=== PATIENT | female | born 1995 | race Caucasian/White ===

== ENCOUNTER 2021-09-15 10:23 | Emergency (ER) | payer OTHER, SELFPAY ==
[2021-09-15 10:30] VITALS: BP 114/70; PULSE 70; RESP 18; TEMP 36.4; O2SAT 100; BMI 22.6
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
== END 2021-09-15 11:04 | disposition home or self-care (01) ==
PROVIDERS: Emergency Provider Physician Assistant
DX: R51.9 Headache, unspecified (principal)
CPT/HCPCS: 99281

== ENCOUNTER 2021-11-26 09:27 | Emergency (ER) | payer OTHER, SELFPAY ==
[2021-11-26 09:37] VITALS: BP 124/80; PULSE 92; RESP 18; TEMP 36.8; O2SAT 100; BMI 21.9
--- NOTE | 2021-11-26 10:24 | ED_ITS ---
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 Her tetanus is up-to-date. She has never received rabies vaccination series prior. This is a workers comp injury. complaint: animal bite Onset (ago): hour(s) Animal: cat Description of animal: wild animal and immunizations unknown Mechanism: bite and scratch Location - Extremities: Right: forearm Associated symptoms: Reports no associated symptoms; Deny chills, fever(s) or headache(s) Related Data: Patient tetanus UTD: Yes Review of Systems Const: Denies: fever(s), chills, body aches, fatigue or malaise Card: Denies: chest pain Resp: Denies: dyspnea GI: Denies: abdominal pain, nausea, vomiting or diarrhea Musc: Reports: extremity pain; Denies: neck pain, back pain, extremity swelling, joint pain or joint swelling Skin/Breast: Reports: other (multiple cat scratch/bites) Neuro: Denies: headache(s), numbness in extremities, weakness in extremities or sensory changes Physical Exam Const: COMMON NORMALS: no acute distress, average body habitus, patient oriented x3, no limitations, healthy appearing, alert and well nourished Extremity: GENERAL: Yes normal exam except as noted RIGHT UPPER EXTREMITY: Yes lower arm OTHER: pt has multiple cat scratches and bite/puncture carr to dorsal R forearm; no redness, swelling, discharge, streaking Neuro: COMMON NORMALS: patient oriented x3, moves all extremities, no focal motor deficits and no sensory deficits noted SENSORIUM/ORIENTATION: Yes alert Course Vital Signs: Vital signs: Vital Signs Temperature 98.2 F 11/26/21 09:37 Pulse Rate 92 11/26/21 09:37 Respiratory Rate 18 11/26/21 09:37 Blood Pressure 124/80 11/26/21 09:37 Pulse Oximetry 100 11/26/21 09:37 MDM - Animal Bite Medical Decision Making Patient will be started on rabies series. She will be placed on Augmentin. Her tetanus is up-to-date. Patient was given schedule and instructions on when to receive repeat rabies vaccinations. Return to ED precautions given. Discharge Plan Discharge Patient Disposition: Home Clinical Impression: Cat bite Qualifiers: Encounter type: initial encounter Qualified Code(s): W55.01XA - Bitten by cat, initial encounter Condition: Stable Prescriptions: New amoxicillin-pot clavulanate 875-125 mg tablet 1 tab PO BID Qty: 14 0RF Discharge Orders: Discharge ED (Routine); Ordered 11/26/21 Ordered By: Izabel Hanley Patient Instructions: Rabies Vaccine (By injection), Rabies Immune Globulin (By injection), Animal Bite (ED) Activity Restrictions/Additional Instructions: As we discussed you have the rabies vaccine repeated on days 3, 7, and 14. You should have received an immunization schedule with dates on when to receive these vaccinations. They should be able to be completed at urgent care. If not you can return to the emergency department. Monitor the bites for infection such as redness, swelling, increased pain, red streaking up your arm, or fevers. You need to seek medical evaluation if these occur. Fill your antibiotics and start them immediately. Coding Level of Care Code ED Airbrush Artist Technical for Russell Fontanez
[2021-11-26] MEDS: rabies vaccine 2.5 unit SDV IM (11:18)
== END 2021-11-26 11:24 | disposition home or self-care (01) ==
PROVIDERS: Emergency Provider Physician Assistant
DX: S51.851A Open bite of right forearm, initial encounter (principal); W55.01XA Bitten by cat, initial encounter; Z29.14 Encounter for prophylactic rabies immune globulin; Z23 Encounter for immunization
CPT/HCPCS: 90375; 90471; 90675; 96372; 99283